=== PATIENT | female | born 1990 | race Caucasian/White ===

== ENCOUNTER 2017-05-29 09:00 | Outpatient (CLI) | payer OTHER, SELFPAY | END 2017-05-29 10:00 | disposition home or self-care (01) | LOC: OBS 09:06 → WP 05-30 08:55 | PROVIDERS: Visit Provider Obstetrics & Gynecology | DX: Z39.1 Encounter for care and examination of lactating mother (principal) | CPT/HCPCS: 96152 ==

== ENCOUNTER → 2018-03-26 14:07 | Outpatient (CLI) | payer OTHER, SELFPAY ==
[2018-03-26 13:17] VITALS: BMI 28.8
[2018-03-26 14:21] LABS: Absolute Lymphocyte Count 1.67 X10^3/ul (0.83-4.51); Basophil# 0.04 X10^3/uL; Basophil% 0.4 % (0-1); Hematocrit 41.4 % (37-47); Hemoglobin 14.3 g/dl (12.0-15.0); Lymphocyte # 1.67 X10^3/ul (4.0); Lymphocyte % 16.2 % (19-41); Mean Corp Hgb Conc 34.5 g/gl (32-36); Mean Corpuscular Volume 92.6 fL (81-99); Mean Platelet Vol. 10.4 fl (6.2-12.0); Monocyte% 4.9 % (0-10); Neutrophil # 7.97 X10^3/uL (2.7-7.7); Neutrophil % 77.3 % (47-70); POSITIVE COUNT NO; POSITIVE DIFFERENTIAL NO; POSITIVE MORPHOLOGY NO; Platelet Count 215 K/mm3 (150-450); RBC Distribution Width CV 11.9 % (11.6-14.6); Red Blood Count 4.47 M/mm3 (4.2-5.4); White Blood Count 10.3 K/mm3 (4.4-11.0)
[2018-03-26 15:38] LABS: HIV - WCH Non-Reactive (Nonreactive); Rubella IgG 29.8 IU/mL
[2018-03-26 19:52] LABS: Chlamydia Trachomatis by PCR Negative (Negative); Neisserai gonorrhoeae by PCR Negative (Negative); Probe Check PASS
[2018-03-28 09:40] LABS: HEPATITIS B SURFACE AG Negative (Negative)
[2018-03-29 00:15] LABS: Rapid Plasmin Reagin (RPR) NONREACTIVE (NONREACTIVE)
[2018-03-31 11:27] LABS: HPV APTIMA, High Risk Negative (Negative)
== END ==
PROVIDERS: Family Provider Family Medicine; PCP Family Medicine; Referring Provider Obstetrics & Gynecology; Visit Provider Obstetrics & Gynecology
DX: Z34.90 Encounter for supervision of normal pregnancy, unspecified, unspecified trimester (principal); Z12.4 Encounter for screening for malignant neoplasm of cervix
CPT/HCPCS: 36415; 85025; 86592; 86703; 86762; 86850; 86900; 87086; 87088; 87340; 87491; 87591; 87624; 88175; G0145

== ENCOUNTER → 2018-04-23 13:32 | Outpatient (CLI) | payer OTHER, SELFPAY ==
[2018-04-23 13:20] VITALS: BMI 28.8
== END ==
PROVIDERS: Referring Provider Nurse Practitioner Women's Health; Visit Provider Nurse Practitioner Women's Health
DX: Z34.81 Encounter for supervision of other normal pregnancy, first trimester (principal)
CPT/HCPCS: 36415

== ENCOUNTER → 2018-08-09 07:58 | Outpatient (CLI) | payer OTHER, SELFPAY ==
[2018-07-16 11:10] VITALS: BMI 28.8
[2018-08-09 09:20] LABS: Glucose Challenge Gest 1H 50g 92 mg/dL (70-140)
== END ==
PROVIDERS: Family Provider Family Medicine; PCP Family Medicine; Referring Provider Obstetrics & Gynecology; Visit Provider Obstetrics & Gynecology
DX: Z34.90 Encounter for supervision of normal pregnancy, unspecified, unspecified trimester (principal)
CPT/HCPCS: 36415; 82950

== ENCOUNTER → 2018-10-09 17:45 | Outpatient (CLI) | payer OTHER, SELFPAY ==
[2018-10-09 09:31] VITALS: BMI 28.8
== END ==
PROVIDERS: Family Provider Family Medicine; Visit Provider Obstetrics & Gynecology
DX: Z34.93 Encounter for supervision of normal pregnancy, unspecified, third trimester (principal)
CPT/HCPCS: 87081

== ENCOUNTER 2018-11-06 10:00 | Inpatient (IN) | payer OTHER, SELFPAY ==
[2018-11-06 09:33] VITALS: BMI 34.0
[2018-11-06 10:12] VITALS: BMI 33.6
[2018-11-06] MEDS: Lactated Ringers 1,000 ML 50 ML IV (10:20)
[2018-11-06 10:44] LABS: Absolute Lymphocyte Count 1.72 X10^3/uL (0.83-4.51); Absolute Neutrophil Count 8.7 X10^3/uL (2.0-7.7); Basophil# 0.04 X10^3/uL; Basophil% 0.4 % (0-1); Eosinophils% 0.9 % (0-5); Hematocrit 40.3 % (37-47); Hemoglobin 13.8 g/dL (12.0-15.0); Lymphocyte # 1.72 X10^3/ul (4.0); Lymphocyte % 15.4 % (19-41); Mean Corp Hgb Conc 34.2 g/dL (32-36); Mean Corpuscular Hgb 32.2 pg (27.0-32.0); Mean Corpuscular Volume 93.9 fL (81-99); Mean Platelet Vol. 11.1 fl (6.2-12.0); Monocyte# 0.61 X10^3/uL; Monocyte% 5.5 % (0-10); NRBC Flagged by Analyzer 0 % (0-5); Neutrophil # 8.67 X10^3/uL (2.7-7.7); Neutrophil % 77.4 % (47-70); Platelet Count 183 K/mm3 (150-450); RBC Distribution Width SD 41.7 fl (35.1-43.9); Red Blood Count 4.29 M/mm3 (4.2-5.4); White Blood Count 11.2 K/mm3 (4.4-11.0)
[2018-11-06] MEDS: Oxytocin 30 units/NS 500 ml 30 UNITS/500 ML IV.SOLN IV (10:54)
[2018-11-06] MEDS: Lactated Ringers 500 ML 999 ML IV ×2 (14:55→19:49)
[2018-11-06] MEDS: fentaNYL-bupivacaine (epidural) 100 ML BAG EPIDURAL ×2 (15:44→20:33)
[2018-11-06] MEDS: Mag Hydrox/Al Hydrox/Simeth 30 ML UDC PO (17:16)
[2018-11-06] MEDS: Lactated Ringers 1,000 ML 200 ML IV (17:17)
[2018-11-06] MEDS: fentaNYL 100 MCG/2 ML Ampul IV (18:35)
[2018-11-06] MEDS: Amnioinfusion- 0.9% NS 1,000 ML IV.SOLN. 500 ML INTRA-UTER (19:05)
[2018-11-06] MEDS: Amnioinfusion- 0.9% NS 1,000 ML IV.SOLN. 75 ML INTRA-UTER (19:35)
[2018-11-06] MEDS: Oxytocin 30 units/NS 500 ml 30 UNITS/500 ML IV.SOLN 334 UNITS IV (21:18)
--- NOTE | 2018-11-06 21:26 | PCM.HP.OB ---
- Problem List (1) Oligohydramnios in [place] in third trimester Status: Acute (2) Encounter for induction of labor Status: Acute (3) Contraception management Status: Acute Qualifiers: Comment: IUD 6 wk pp (4) Unilateral renal agenesis Status: Acute Comment: repeat us with mfm in 4 wk. ped. nephrology is arranged per mfm (5) Status: Acute Qualifiers: Comment: carrier, genetic, and NTD screening discussed. Dennis low risk. Pt declined further genetic testing (6) Supervision of normal Status: Acute Qualifiers: Comment: PRR JACOB 11/01/18 boy Eric Singh Marcos History Date of Admission: 03/30/17 Final JACOB: 11/01/18 Gestational age: 40 Weeks and 5 Days History of this : This is a 28 year-old, at 40 weeks gestational age presents for induction of labor secondary to oligohydramnios. Patient was seen in the office today and was found to have an PAVEL of 5 cm. Patient has had a history of complicated with unilateral renal agenesis but has had normal growth and normal fluid prior to today's appointment. Patient has noted some decreased movement today but overall baby is active.. Surgical History: Surgical History (Last Reviewed 11/06/18 @ 09:33 by Millicent Echeverria) H/O adenoidectomy Z90.89 History of tonsillectomy Z98.890, Z90.89 S/P ACL surgery Z98.890 Allergies Penicillins [PCN] Allergy (Verified 11/06/18 10:20) Hives Home Medications: Home Medications [id number]/Iron/Folic/Dha [ Formula-Dha Softgel] 1 ea PO DAILY 10/04/16 Smoking Status: Never smoker Alcohol: None Number of Fetus(es): 1 NST - FHR Rate Baby A Baseline: 130 Variability:: Moderate Accelerations:: None Decelerations:: None NST Reactive:: Yes FHR Category:: Category I Uterine Activity:: Irregular History Past Pregnancies: Past Pregnancies Previous term vaginal delivery induction of labor postdates prolonged labor Labs: Mom's Labs & Results 11/06/18 11/06/18 10:20 10:20 WBC 11.2 H RBC 4.29 Hgb 13.8 Hct 40.3 MCV 93.9 MCH 32.2 H MCHC 34.2 RDW Std Deviation 41.7 RDW Coeff of Garima 12.0 Plt Count 183 MPV 11.1 Immature Gran % (Auto) 0.400 Neut % (Auto) 77.4 H Lymph % (Auto) 15.4 L [place] % (Auto) 5.5 Eos % (Auto) 0.9 Baso % (Auto) 0.4 Absolute Neuts (auto) 8.7 H Absolute Lymphs (auto) 1.72 Nucleated RBC % 0 Blood Type O POSITIVE Antibody Screen NEGATIVE Course Did the patient receive Yes care? Labs Blood Type: O RH: POSITIVE RPR/VDRL/Syphilis Nonreactive Rubella status Immune HbSAg Negative Date Done: 03/26/18 Chlamydia Negative Gonorrhea Negative HIV/AIDS Non-Reactive Group B Strep: Negative Current Obstetrical History Gestational Diabetes No Incompetent Cervix No Infertility No IUGR No Macrosomia No Hypertension/Pre-eclampsia No Placenta Previa/Abruption No PTL/PROM No Uterine anomaly No Oligohydramnios Yes Polyhydramnios No Multiple gestation No Past Medical History Asthma No Diabetes No Hypertension No Heart disease No Mitral valve prolapse No Neurologic/Seizure disorder/ No Migraines Kidney disease No Liver disease No Varicosities No Clotting disorders/Hx of DVT No Thyroid Dysfunction No Other medical diseases No Psychiatric disorders No Major trauma No Abnormal PAP smear No Sleep apnea No Mammogram in the last 2 years No Social History Marital Status: Alleged father Marcos Parson Hx Smoking No Smoking Status Never smoker Expected Infant Delivery Method: Spontaneous Vaginal Review of Systems Constitutional: Denies: Fever, Malaise Eyes: Denies: Blurred vision, Vision Change HEENT: Denies: Head Aches, Visual Changes Cardiovascular: Denies: Chest Pain, Palpitations Respiratory: Denies: Cough, Shortness of Breath, Wheezing Gastrointestinal: Denies: Abdominal Pain, Diarrhea, Nausea, Vomiting Genitourinary: Denies: Dysuria, Hematuria Musculoskeletal: Denies: Joint Pain, Muscle pain Skin: Denies: Lesions, Rash Neurological: Denies: Blurred vision, Focal weakness, Headaches Psychiatric: Denies: Anxiety, Depression Endocrine: Denies: Heat/ Cold Intolerance Hematologic/ Lymphatic: Denies: Easy Bruising, Easy Bleeding Physical Exam General: Alert, Cooperative, No apparent distress HEENT: Atraumatic, Normocephalic. Negative for: Thyromegaly, Lymphadenopathy Cardiovascular: Regular rate Lungs: Normal air movement Abdomen: Soft, Non Tender, Gravid Neurological: Deep Tendon Reflexes 2+/4 and Symmetrical, Neuro grossly intact. 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 Negative for: Vulvar lesions Estimated gestational size: Appropriate for gestational size Presentation: Cephalic Cervix Dilation (cm): 3 Station: -2 Effacement (%): 50 Assessment/Plan All Active Problems (Last Reviewed 11/06/18 @ 09:33 by Millicent Echeverria) Oligohydramnios in [place] in third trimester (Acute) Encounter for induction of labor (Acute) Contraception management (Acute) Unilateral renal agenesis (Acute) (Acute) Supervision of normal (Acute) GBS (group B Streptococcus carrier), +RV culture, currently (Resolved) Dennis low risk (Resolved) Normal delivery at term (Resolved) Oligohydramnios in [place] in third trimester (Resolved) Supervision of normal (Resolved) This is a 28 year-old, G 2P1 at 40 weeks gestational age presents for induction labor secondary to oligohydramnios. Patient presents IOL, plan management for , pitocin/AROM when able. Pain management: [plans epidural]. GBS [negative]. Management of any complications: Oligohydramnios new onset suspected placental insufficiency, unilateral renal agenesis I have reviewed the COUNTS INCLUDE 234 BEDS AT THE [facility] and made any clinically relevant updates.
--- NOTE | 2018-11-06 21:31 | PCM.OPRPT ---
Problem List (1) Oligohydramnios in [place] in third trimester Status: Acute (2) Encounter for induction of labor Status: Acute (3) Contraception management Status: Acute Qualifiers: Comment: IUD 6 wk pp (4) Unilateral renal agenesis Status: Acute Comment: repeat us with mfm in 4 wk. ped. nephrology is arranged per mfm (5) Status: Acute Qualifiers: Comment: carrier, genetic, and NTD screening discussed. Dennis low risk. Pt declined further genetic testing (6) Supervision of normal Status: Acute Qualifiers: Comment: PRR JACOB 11/01/18 boy Eric Singh Marcos Vaginal Delivery 28-year-old G2, P1 at 40 weeks 5 days presents for induction of labor secondary to oligohydramnios. Patient has a history of unilateral renal agenesis. Method of Induction: Pitocin Medical Reason for Induction: - - Oligohydramnios Amniotic Membrane Rupture Type: Artificial Amniotic Fluid Description: Clear Final JACOB: 11/01/18 Gestational age: 40 Weeks and 5 Days Date of Procedure: 11/06/18 Pre-Operative Diagnosis: Induction of labor oligo Post-Operative Diagnosis: same Surgery/ Procedure Performed: Spontaneous Vaginal Delivery Type of Anesthesia: Epidural Description of Procedure: Patient began pushing and delivered the head in the JAMARI presentation. The head was delivered atraumatically and a loose nuchal cord ?1 was identified and easily reduced over the 's head. The anterior and posterior shoulders delivered without complication followed by the rest of the infant and the infant was placed on the maternal abdomen. Delayed cord clamping was employed for approximately 60 seconds. Cord was clamped and cut and gentle traction was applied to the cord and the placenta delivered spontaneously immediately following it was noted to be intact with three-vessel cord. The perineum and vagina were inspected and noted to have no laceration. EBL was 300 cc. Patient and infant tolerated delivery well. Presentation: JAMARI Placental Delivery Description: Spontaneous Placenta Disposition: [facility] Cord Vessel Description: 3 Vessels Nuchal Cord Compression: With compression Cord Gases drawn per routine: ABG, VBG Cord Entanglement: Around neck x 1, loose Estimated Blood Loss: 300 Infant A gender: Male Episiotomy Description: None Laceration: None Medications given after delivery: IV Pitocin Complications: None
[2018-11-06] MEDS: 0.9% Saline Lock 10 ML Syringe IV (21:36)
[2018-11-06] MEDS: Ondansetron 4 MG/2 ML Vial IV (21:37)
[2018-11-07] MEDS: 0.9% Saline Lock 10 ML Syringe IV (00:29)
[2018-11-07] MEDS: Naproxen 250 MG Tablet 500 MG PO (02:36)
[2018-11-07 04:15] VITALS: BP 103/58; PULSE 71; RESP 16; TEMP 36.9
[2018-11-07 08:50] VITALS: BP 101/57; PULSE 75; RESP 16; TEMP 36.7; O2SAT 98
[2018-11-07 13:36] VITALS: BP 109/63; PULSE 69; RESP 16; TEMP 36.8
[2018-11-07 16:00] VITALS: BP 107/59; PULSE 69; RESP 16; TEMP 36.6; O2SAT 98
--- NOTE | 2018-11-07 17:13 | PCM.PN.OB ---
Patient Problems: Active and Suspected Problems (Last Reviewed 11/06/18 @ 09:33 by Millicent Echeverria) Oligohydramnios in [place] in third trimester (Acute) Encounter for induction of labor (Acute) Subjective: doing well no complaints pain controlled no CP SOB N V ambulating well tolerating po lochia moderate, going well - Physical Exam General: Alert, Oriented x3 Vital Signs Temp Pulse Resp BP Pulse Ox 98 F 69 16 107/59 L 98 11/07/18 16:00 11/07/18 16:00 11/07/18 16:00 11/07/18 16:00 11/07/18 16:00 Oxygen Delivery Method Room Air Weight: 228 lb Body Mass Index (BMI) 33.6 Intake and Output for Last 24 Hours 11/05/18 11/06/18 11/07/18 23:59 23:59 23:59 Intake Total 2892.09 / 2892.09 Output Total 1900 / 1900 3500 / 3500 Balance 992.09 / 992.09 -3500 / -3500 Medical Necessity - Tobacco Use Smoking Status: Never smoker Assessment/Plan All Active Problems (Last Reviewed 11/06/18 @ 09:33 by Millicent Echeverria) Oligohydramnios in [place] in third trimester (Acute) Encounter for induction of labor (Acute) Contraception management (Acute) Unilateral renal agenesis (Acute) (Acute) Supervision of normal (Acute) GBS (group B Streptococcus carrier), +RV culture, currently (Resolved) Dennis low risk (Resolved) Normal delivery at term (Resolved) Oligohydramnios in [place] in third trimester (Resolved) Supervision of normal (Resolved) s/p PPD # 1 1. routine post delivery care 2. breast feeding- support given 3. rh positive 4. rubella immune
[2018-11-07 20:55] VITALS: BP 102/62; PULSE 67; RESP 18; TEMP 36.7
[2018-11-07] MEDS: Senna/Docusate Sodium 1 Tablet PO (21:00)
== END 2018-11-07 23:10 | disposition home or self-care (01) | DRG 806 ==
PROVIDERS: Admitting Provider Obstetrics & Gynecology; Family Provider Family Medicine; Referring Provider Obstetrics & Gynecology; Visit Provider Obstetrics & Gynecology
DX: O41.03X0 Oligohydramnios, third trimester, not applicable or unspecified (principal); Q60.0 Renal agenesis, unilateral; Z37.0 Single live birth; O99.89 Other specified diseases and conditions complicating pregnancy, childbirth and the puerperium; N28.89 Other specified disorders of kidney and ureter; O69.1XX0 Labor and delivery complicated by cord around neck, with compression, not applicable or unspecified; O48.0 Post-term pregnancy; Z3A.40 40 weeks gestation of pregnancy
CPT/HCPCS: 59025; 59050; 85025; 86850; 86900; 86901; 99218; J7030; J7120; A4216; G0378; J2405

== ENCOUNTER → 2018-12-16 13:33 | Outpatient (CLI) | payer OTHER, SELFPAY ==
[2018-12-16 08:43] VITALS: BMI 33.6
== END ==
PROVIDERS: Family Provider Family Medicine; PCP Family Medicine; Referring Provider Obstetrics & Gynecology; Visit Provider Obstetrics & Gynecology
DX: R33.0 Drug induced retention of urine (principal)
CPT/HCPCS: 87086; 87088

== ENCOUNTER → 2019-04-25 08:55 | Outpatient (CLI) | payer OTHER, SELFPAY ==
[2018-12-16 08:43] VITALS: BMI 33.6
--- NOTE | 2019-04-25 08:59 | RAD_ITS ---
STUDY: X-RAY - LUMBAR SPINE REASON FOR EXAM: Female, 29 years old. back pain into the right hip TECHNIQUE: 5 view(s) of the lumbar spine were obtained. COMPARISON: None FINDINGS: Normal lumbar lordosis. There is no substantial scoliosis. There is a normal alignment of the vertebrae. Normal vertebral bodies and endplates. Normal disc space heights. An IUD is seen in the pelvis. RAD/L/S Spine Min 4 Views IMPRESSION: Normal x-ray examination of the lumbar spine. Electronically Signed: Pipe Urban MD at 18:35 EST , Service support ,
--- NOTE | 2019-04-25 09:00 | RAD_ITS ---
STUDY: X-RAY - SACROILIAC JOINTS REASON FOR EXAM: Female, 29 years old. back pain into the right hip TECHNIQUE: 3 view(s) of the sacroiliac joints were obtained. COMPARISON: None. FINDINGS: Normal bilateral sacroiliac joints. Normal visualized sacral ala and sacrum. Normal visualized iliac bones. An IUD is seen in the mid pelvis. RAD/S-I Jts 3 or More Views IMPRESSION: Normal x-ray examination of the bilateral sacroiliac joints. Electronically Signed: Pipe Urban MD at 19:11 EST , Service support ,
== END ==
PROVIDERS: PCP Family Medicine; Referring Provider Family Medicine; Visit Provider Family Medicine
DX: M53.3 Sacrococcygeal disorders, not elsewhere classified (principal)
CPT/HCPCS: 72110; 72202

== ENCOUNTER → 2019-11-05 14:54 | Outpatient (CLI) | payer OTHER, SELFPAY ==
[2019-11-05 14:19] VITALS: BMI 33.6
[2019-11-05 15:23] LABS: Absolute Lymphocyte Count 2.13 X10^3/uL (0.83-4.51); Absolute Neutrophil Count 4.1 X10^3/uL (2.0-7.7); Basophil# 0.05 X10^3/uL; Basophil% 0.7 % (0-1); Eosinophil# 0.12 X10^3/uL; Eosinophils% 1.8 % (0-5); Hematocrit 39.2 % (37-47); Lymphocyte # 2.13 X10^3/ul (4.0); Lymphocyte % 31.4 % (19-41); Mean Corp Hgb Conc 33.2 g/dL (32-36); Mean Corpuscular Hgb 31.7 pg (27.0-32.0); Mean Corpuscular Volume 95.6 fL (81-99); Mean Platelet Vol. 10.1 fl (6.2-12.0); Monocyte# 0.37 X10^3/uL; Monocyte% 5.5 % (0-10); NRBC Flagged by Analyzer 0 % (0-5); Neutrophil % 60.5 % (47-70); Platelet Count 231 K/mm3 (150-450); RBC Distribution Width CV 11.5 % (11.6-14.6); RBC Distribution Width SD 39.8 fl (35.1-43.9); White Blood Count 6.8 K/mm3 (4.4-11.0)
== END ==
PROVIDERS: PCP Family Medicine; Referring Provider Obstetrics & Gynecology; Visit Provider Obstetrics & Gynecology
DX: N93.9 Abnormal uterine and vaginal bleeding, unspecified (principal)
CPT/HCPCS: 36415; 85025

== ENCOUNTER → 2020-03-17 | Outpatient (CLI) | payer OTHER, SELFPAY ==
[2020-03-17 09:13] VITALS: BMI 29.7
[2020-03-17 17:52] LABS: Amphetamine Urine VISTA NEGATIVE (<1000 ng/mL); Barbiturate Urine VISTA NEGATIVE (< 200 ng/mL); Benzodiazepine Urine VISTA NEGATIVE (< 200 ng/mL); Cocaine Urine VISTA NEGATIVE (< 300 ng/mL); Ecstacy Urine VISTA NEGATIVE (< 500 ng/mL); Methadone Urine VISTA NEGATIVE (< 300 ng/mL); PCP Urine VISTA NEGATIVE (< 25 ng/mL); THC Urine VISTA NEGATIVE (< 50 ng/mL); Vista UDS pH Range 6
== END | disposition home or self-care (01) ==
LOC: LABSPEC 16:42
PROVIDERS: PCP Family Medicine; Referring Provider Obstetrics & Gynecology; Visit Provider Obstetrics & Gynecology
DX: Z34.80 Encounter for supervision of other normal pregnancy, unspecified trimester (principal)
CPT/HCPCS: 80307; 87086; 87088

== ENCOUNTER → 2020-04-02 09:06 | Outpatient (CLI) | payer OTHER, SELFPAY ==
[2020-03-17 09:13] VITALS: BMI 29.7
[2020-04-02 10:12] LABS: NATERA MAILED SPECIMEN
[2020-04-02 10:19] LABS: Absolute Lymphocyte Count 1.48 X10^3/uL (0.83-4.51); Absolute Neutrophil Count 7.1 X10^3/uL (2.0-7.7); Basophil# 0.05 X10^3/uL; Basophil% 0.6 % (0-1); Eosinophil# 0.09 X10^3/uL; Hemoglobin 14.1 g/dL (12.0-15.0); Lymphocyte # 1.48 X10^3/ul (4.0); Lymphocyte % 16.3 % (19-41); Mean Corp Hgb Conc 33.6 g/dL (32-36); Mean Corpuscular Hgb 31.2 pg (27.0-32.0); Mean Corpuscular Volume 92.9 fL (81-99); Mean Platelet Vol. 10.6 fl (6.2-12.0); Monocyte# 0.34 X10^3/uL; Monocyte% 3.7 % (0-10); NRBC Flagged by Analyzer 0 % (0-5); Neutrophil # 7.07 X10^3/uL (2.7-7.7); Platelet Count 215 K/mm3 (150-450); RBC Distribution Width CV 11.7 % (11.6-14.6); RBC Distribution Width SD 40.1 fl (35.1-43.9); Red Blood Count 4.52 M/mm3 (4.2-5.4); White Blood Count 9.1 K/mm3 (4.4-11.0)
[2020-04-02 11:45] LABS: HIV - WCH Non-Reactive (Nonreactive); Hepatitis B Surface Antigen Non-Reactive (Nonreactive); Hepatitis C Antibody Non-Reactive (Nonreactive); Rubella IgG Reactive (Nonreactive)
[2020-04-08 01:40] LABS: Rapid Plasmin Reagin (RPR) NONREACTIVE (NONREACTIVE)
== END ==
PROVIDERS: PCP Family Medicine; Referring Provider Obstetrics & Gynecology; Visit Provider Obstetrics & Gynecology
DX: Z34.81 Encounter for supervision of other normal pregnancy, first trimester (principal)
CPT/HCPCS: 36415; 85025; 86592; 86703; 86762; 86803; 86850; 86900; 86901; 87340

== ENCOUNTER → 2020-07-20 07:38 | Outpatient (CLI) | payer OTHER, SELFPAY ==
[2020-07-06 09:10] VITALS: BMI 31.4
[2020-07-20 08:36] LABS: Absolute Lymphocyte Count 1.08 X10^3/uL (0.83-4.51); Absolute Neutrophil Count 7.8 X10^3/uL (2.0-7.7); Basophil# 0.05 X10^3/uL; Basophil% 0.5 % (0-1); Eosinophil# 0.12 X10^3/uL; Eosinophils% 1.3 % (0-5); Hematocrit 39.5 % (37-47); Hemoglobin 13.3 g/dL (12.0-15.0); Lymphocyte # 1.08 X10^3/ul (0.83-4.51); Lymphocyte % 11.4 % (19-41); Mean Corp Hgb Conc 33.7 g/dL (32-36); Mean Corpuscular Hgb 32.5 pg (27.0-32.0); Mean Corpuscular Volume 96.6 fL (81-99); Mean Platelet Vol. 10.3 fl (6.2-12.0); Monocyte# 0.38 X10^3/uL; NRBC Flagged by Analyzer 0 % (0-5); Neutrophil # 7.78 X10^3/uL (2.7-7.7); Neutrophil % 82.1 % (47-70); Platelet Count 213 K/mm3 (150-450); RBC Distribution Width CV 11.5 % (11.6-14.6); RBC Distribution Width SD 40.8 fl (35.1-43.9); Red Blood Count 4.09 M/mm3 (4.2-5.4); White Blood Count 9.5 K/mm3 (4.4-11.0)
[2020-07-20 08:55] LABS: Glucose Challenge Gest 1H 50g 73 mg/dL (70-140)
== END ==
PROVIDERS: PCP Family Medicine; Referring Provider Obstetrics & Gynecology; Visit Provider Obstetrics & Gynecology
DX: Z34.92 Encounter for supervision of normal pregnancy, unspecified, second trimester (principal); Z13.1 Encounter for screening for diabetes mellitus
CPT/HCPCS: 36415; 82950; 85025

== ENCOUNTER → 2020-09-22 | Outpatient (CLI) | payer OTHER, SELFPAY ==
[2020-09-22 08:33] VITALS: BMI 31.4
== END | disposition home or self-care (01) ==
PROVIDERS: PCP Family Medicine; Visit Provider Obstetrics & Gynecology
DX: Z36.85 Encounter for antenatal screening for Streptococcus B (principal)
CPT/HCPCS: 87081

== ENCOUNTER → 2020-10-07 16:19 | Outpatient (CLI) | payer OTHER, SELFPAY ==
[2020-10-07 15:46] VITALS: BMI 31.4
--- NOTE | 2020-10-07 16:21 | US_ITS ---
STUDY: SECOND AND THIRD TRIMESTER OBSTETRICAL ULTRASOUND - LIMITED REASON FOR EXAM: Female, 30 years old history oligo LMP: 01/11/2020 PRIOR ULTRASOUND: None. TECHNIQUE: Transabdominal TECHNICAL QUALITY: Adequate. FINDINGS: There is a single intrauterine fetus. The fetus is in a cephalic presentation. There is demonstrated cardiac activity with a heart rate of 153 bpm. There is a normal amniotic fluid volume. The largest amniotic fluid pocket measures 4.4 cm. The amniotic fluid index (PAEVL) is 7.0 cm. The placenta is fundal in location. There are Grade 2 placental changes. The cervix measures 5.4 cm in length. BIOMETRY: BPD: 9.3 cm: 37 weeks, 6 days HC: 33.8 cm: 38 weeks, 5 days AC: 33.3 cm: 37 weeks, 1 days FL: 7.0 cm: 35 weeks, 6 days Age by LMP: 38 weeks, 4 days. JACOB by LMP: 10/17/2020. age by current US: 37 weeks, 2 days. JACOB by current US: 10/26/2020. Estimated weight: 3135 grams, +/- 470 grams, 31 percentile. Gender: US/OB Limited With Biometrics IMPRESSION: Living intrauterine of 37 weeks 2 days as described above. Amniotic fluid A 7.0 cm. Electronically Signed: Jose Luis Price MD at 8:23 EDT Tel , Service support ,
== END ==
PROVIDERS: PCP Family Medicine; Referring Provider Obstetrics & Gynecology; Visit Provider Obstetrics & Gynecology
DX: O09.293 Supervision of pregnancy with other poor reproductive or obstetric history, third trimester (principal); Z3A.37 37 weeks gestation of pregnancy
CPT/HCPCS: 76816

== ENCOUNTER 2020-10-14 08:33 | Inpatient (IN) | payer OTHER, SELFPAY ==
[2020-10-14] VITALS (44 sets, daily range): BP systolic 94–138; BP diastolic 50–74; PULSE 58–86; TEMP 35.8–37.1; O2SAT 97–100; BMI 31.4; BMI 34.0
[2020-10-14] MEDS: Lactated Ringers 1,000 ML 50 ML IV (08:50)
[2020-10-14 09:05] LABS: Absolute Lymphocyte Count 1.36 X10^3/uL (0.83-4.51); Absolute Neutrophil Count 6.1 X10^3/uL (2.0-7.7); Basophil# 0.03 X10^3/uL; Basophil% 0.4 % (0-1); Eosinophil# 0.08 X10^3/uL; Hematocrit 39.9 % (37-47); Hemoglobin 13.5 g/dL (12.0-15.0); Lymphocyte # 1.36 X10^3/ul (0.83-4.51); Lymphocyte % 17.2 % (19-41); Mean Corp Hgb Conc 33.8 g/dL (32-36); Mean Corpuscular Hgb 31.9 pg (27.0-32.0); Mean Corpuscular Volume 94.3 fL (81-99); Mean Platelet Vol. 10.8 fl (6.2-12.0); Monocyte# 0.34 X10^3/uL; Monocyte% 4.3 % (0-10); NRBC Flagged by Analyzer 0 % (0-5); Neutrophil # 6.09 X10^3/uL (2.7-7.7); Neutrophil % 76.8 % (47-70); Platelet Count 173 K/mm3 (150-450); RBC Distribution Width CV 11.9 % (11.6-14.6); RBC Distribution Width SD 41.4 fl (35.1-43.9); Red Blood Count 4.23 M/mm3 (4.2-5.4); White Blood Count 7.9 K/mm3 (4.4-11.0)
[2020-10-14] MEDS: Oxytocin 30 units/NS 500 ml 30 UNITS/500 ML IV.SOLN IV (09:20)
[2020-10-14] MEDS: 0.9% Normal Saline Single 100 ML IV.SOLN. INTRA-UTER (16:00)
[2020-10-14] MEDS: Lactated Ringers 500 ML 999 ML IV ×2 (16:42→18:20)
[2020-10-14] MEDS: fentaNYL-bupivacaine (epidural) 100 ML BAG EPIDURAL ×2 (17:40→21:13)
--- NOTE | 2020-10-14 19:12 | HP.PCM.OB_ITS ---
HPI - General General Date of Admission: 10/14/20 HPI Narrative SHA CLEARY, is a 30 F who presents for induction of labor secondary to oligohydramnios. Patient had a borderline PAVEL last week and had a repeat in the office today that was less than 5 cm. Maternal Data Information JACOB Calculator Estimated Delivery Date Method Current WG Current Estimate 10/17/20 LMP (Certain) 39w 4d PFSH PFSH Home Medications [id number] 1 ea PO DAILY 10/04/16 [History Last Taken 11/05/18] Allergy/AdvReac Type Severity Reaction Status Date / Time Penicillins [PCN] Allergy Hives Verified 10/14/20 08:04 Family History Father Anxiety Grandfather Parkinsons disease Surgical History H/O adenoidectomy History of tonsillectomy S/P ACL surgery Social History Smoking Status: Never smoker alcohol intake: never substance use type: does not use caffeine: Yes what type of physical activity do you participate in: none seatbelt use: always additional social history: [facility] History 3 Elective abortions Hx Para 2 Spontaneous abortions Hx # Term Pregnancies Ectopic pregnancies Hx # Pregnancies Multiple births # of living children 2 Past Pregnancies Del. Date Name GA/Weeks Outcome Route Bth Weight Infant Gen Labor Lgth Anesthesia Del Locat Provider FOB 03/25/17 Francisco 41 live - full term 8 pounds 13 oz Male 1 day epidural [facility] Marcos 11/06/18 Eric 40 live - full term 8lbs 5oz Male 9 hours e pidural [facility] Delivery Date: 03/25/17 oligo Zully Rhodes Delivery Date: 11/06/18 Oligo-unilateral renal agenesis Sha Barrett Visit Details Expected Delivery Route/Plan Labor Preferences- CB/BF classes: no labor support person: Marcos labor intervention preferences: open to standard interventions pain management options preferred: epidural cut cord/dad catch: mom catch and cord : yes PP control planned: IUD at 6w PP visit discussed possible routes of delivery and associated risks: [] special requests: [] Plans flu vaccine: given tdap vaccine: given rhogam: na LARC form signed: yes Problem list reviewed and updated with the most current plan of care details and appropriate orders placed. Relevant counseling for the gestational age provided. Continue routine care and follow up unless otherwise noted in visit notes/problem list details OB Flowsheet Initial Weight: Not Recorded Date -?-?-?-?-?-?-?-?-?-?-?-?- EGA Weight BP Urine Prot -?-?-?-?-?-?-?-?-?-?-?-?- Glucose FHR FuHt Pres Dilation -?-?-?-?-?-?-?-?-?-?-?-?- Effaced St Visit Note 03/17/20 -?-?-?-?-?-?-?-?-?-?-?-?- 9w 3d 201 lb 8 oz 110/80 -?-?-?-?-?-?-?-?-?-?-?-?- 175 -?-?-?-?-?-?-?-?-?-?-?-?- GP - CRL 23mm co nsistent with LMP. 04/14/20 -?-?-?-?-?-?-?-?-?-?-?-?- 13w 3d 204 lb 2 oz 110/68 Nega tive -?-?-?-?-?-?-?-?-?-?-?-?- Negative 155 -?-?-?-?-?-?-?-?-?-?-?-?- GP - no cramping or bleeding. Anatomy scan ordered. Getting second COVID vaccine tomorrow. 05/14/20 -?-?-?-?-?-?-?-?-?-?-?-?- 17w 5d 207 lb 124/71 Negative -?-?-?-?-?-?-?-?-?-?-?-?- Negative 150 -?-?-?-?-?-?-?-?-?-?-?-?- SM- n ovb lof cr amping. 06/07/20 -?-?-?-?-?-?-?-?-?-?-?-?- 21w 1d 213 lb 4 oz 100/70 Nega tive -?-?-?-?-?-?-?-?-?-?-?-?- Negative 140 -?-?-?-?-?-?-?-?-?-?-?-?- GP - no cramping , LOF, VB, DFM. Anatomy nl. 07/06/20 -?-?-?-?-?-?-?-?-?-?-?-?- 25w 2d 217 lb 120/66 -?-?-?-?-?-?-?-?-?-?-?-?- 155 -?-?-?-?-?-?-?-?-?-?-?-?- MH-NO Vb, LOF. G ood FM. 07/20/20 -?-?-?-?-?-?-?-?-?-?-?-?- 27w 2d 221 lb 110/62 Negative -?-?-?-?-?-?-?-?-?-?-?-?- Negative 145 27 -?-?-?-?-?-?-?-?-?-?-?-?- SM- no vb lof go od fm no regular ctx 08/03/20 -?--?-?-?-?-?-?-?-?-?-?-?- 29w 2d 221 lb 6 oz 118/66 Nega tive -?-?-?-?-?-?-?-?-?-?-?-?- Negative 136 29 -?-?-?-?-?-?-?-?-?-?-?-?- No VB, LOF. Good FM. Nl 28 wk labs 08/19/20 -?-?-?-?-?-?-?-?-?-?-?-?- 31w 4d 224 lb 6 oz 106/66 Nega tive -?-?-?-?-?-?-?-?-?-?-?-?- Negative 135 31 -?-?-?-?-?-?-?-?-?-?-?-?- GP - no LOF, VB, DFM, ctx. Going to a friend's wedding this . 09/03/20 -?-?-?-?-?-?-?-?-?-?-?-?- 33w 5d 228 lb 127/70 Negative -?-?-?-?-?-?-?-?-?-?-?-?- Negative 150 34 Cephalic -?-?-?-?-?-?-?-?-?-?-?-?- SM- no vb lof go od fm no regular ctx 09/16/20 -?-?-?-?-?-?-?-?-?-?-?-?- 35w 4d 231 lb 2 oz 110/70 Nega tive -?-?-?-?-?-?-?-?-?-?-?-?- Negative 145 35 Cephalic -?-?-?-?-?-?-?-?-?-?-?-?- GP - no LOF, VB, dFM, ctx. Discussed labor preferences. 09/22/20 -?-?-?-?-?-?-?-?-?-?-?-?- 36w 3d 228 lb 102/60 Negative -?-?-?-?-?-?-?-?-?-?-?-?- Negative 140 36 Cephalic 1 -?-?-?-?-?-?-?-?-?-?-?-?- 50 -3 GP - no LO F, VB, DFM, ctx. GBS today. Visiting cousins in [place] this . 09/29/20 -?-?-?-?-?-?-?-?-?-?-?-?- 37w 3d 229 lb 114/62 Negative -?-?-?-?-?-?-?-?-?-?-?-?- Negative 155 37 Cephalic 1 -?-?-?-?-?-?-?-?-?-?-?-?- 50 -3 GP - no LO F, VB, dFM, ctx. Denies complaints. 10/07/20 -?-?-?-?-?-?-?-?-?-?-?-?- 38w 4d 232 lb 132/80 Negative -?-?-?-?-?-?-?-?-?-?-?-?- Negative 150 38 Cephalic 1 -?-?-?-?-?--?-?-?-?-?-?-?- SM- no vb lof go od fm irregular ctx. SM- no vb lof good fm irregu lar ctx. growth us ordered due to history of oligo 10/14/20 -?-?-?-?-?-?-?-?-?-?-?-?- 39w 4d 231 lb 120/76 Negative -?-?-?-?-?-?-?-?-?-?-?-?- Negative -?-?-?-?-?-?-?-?-?-?-?-?- 10/14/20 -?-?-?-?-?-?-?-?-?-?-?-?- 39w 4d 230 lb 6.129 oz 118/ 69 114/67 115/74 138/72 126/71 107/61 133/60 120/67 125/67 105/55 102/51 99/54 94/55 95/50 99/58 96/55 103/56 105/55 114/69 -?-?-?-?-?-?-?-?--?-?-?-?- -?-?-?-?-?-?-?-?-?-?-?-?- NST FHR Rate Baby A Baseline: 130 Variability:: Moderate Accelerations:: 15 x 15 Decelerations:: None NST Reactive:: Yes FHR Category:: Category I Uterine Activity:: irregular ROS Constitutional Constitutional: Reports systems reviewed and no addt'l complaints, except as documented Eyes Eyes: Denies change in vision ENT HEENT: Reports systems reviewed and no addt'l complaints, except as documented; Denies headache(s) Cardiovascular Cardiovascular: Reports systems reviewed and no addt'l complaints, except as documented; Denies chest pain or dyspnea Respiratory/Chest Respiratory/Chest: Reports systems reviewed and no addt'l complaints, except as documented Gastrointestinal Gastrointestinal: Reports systems reviewed and no addt'l complaints, except as documented; Denies abdominal pain Genitourinary Genitourinary: Reports systems reviewed and no addt'l complaints, except as documented, contractions Details: present (irregular) and movement Details: present; Denies dysuria or genital lesions Musculoskeletal Musculoskeletal: Reports systems reviewed and no addt'l complaints, except as documented Neurologic Neurologic: Reports systems reviewed and no addt'l complaints, except as documented Endocrine Endocrinology: Reports systems reviewed and no addt'l complaints, except as documented Vital Signs Vital Signs Vital Signs: 10/14/20 09:14 10/14/20 13:59 10/14/20 14:08 Temperature 98.8 F 98.1 F Temperature Source Pulse Rate 83 73 77 Blood Pressure 118/69 114/67 BP Systolic 118 114 BP Diastolic 69 67 Pulse Ox 97 10/14/20 15:28 10/14/20 15:29 10/14/20 17:19 Temperature 98.1 F Temperature Source Temporal Pulse Rate 61 68 Blood Pressure 115/74 138/72 H BP Systolic 115 138 BP Diastolic 74 72 Pulse Ox 98 10/14/20 17:22 10/14/20 17:27 10/14/20 17:31 Temperature 98.1 F Temperature Source Pulse Rate 61 69 Blood Pressure 126/71 H BP Systolic 126 BP Diastolic 71 Pulse Ox 99 99 10/14/20 17:32 10/14/20 17:37 10/14/20 17:42 Temperature Temperature Source Pulse Rate 71 72 Blood Pressure 107/61 133/60 H BP Systolic 107 133 BP Diastolic 61 60 Pulse Ox 98 98 98 10/14/20 17:43 10/14/20 17:47 10/14/20 17:52 Temperature Temperature Source Pulse Rate 71 65 64 Blood Pressure 120/67 125/67 H 105/55 L BP Systolic 120 125 105 BP Diastolic 67 67 55 Pulse Ox 99 98 99 10/14/20 17:57 10/14/20 17:58 10/14/20 18:02 Temperature Temperature Source Pulse Rate 62 Blood Pressure 102/51 L BP Systolic 102 BP Diastolic 51 Pulse Ox 99 98 10/14/20 18:03 10/14/20 18:06 10/14/20 18:07 Temperature 97.7 F L Temperature Source Pulse Rate 61 62 Blood Pressure 99/54 L 94/55 L BP Systolic 99 94 BP Diastolic 54 55 Pulse Ox 99 10/14/20 18:12 10/14/20 18:17 10/14/20 18:22 Temperature Temperature Source Pulse Rate 66 64 64 Blood Pressure 95/50 L 99/58 L 96/55 L BP Systolic 95 99 96 BP Diastolic 50 58 55 Pulse Ox 99 99 99 10/14/20 18:27 10/14/20 18:32 10/14/20 18:33 Temperature Temperature Source Pulse Rate 62 59 L 61 Blood Pressure 103/56 L 105/55 L BP Systolic 103 105 BP Diastolic 56 55 Pulse Ox 99 99 10/14/20 18:37 10/14/20 18:42 10/14/20 18:44 Temperature 97.3 F L Temperature Source Pulse Rate 58 L 67 Blood Pressure BP Systolic BP Diastolic Pulse Ox 100 99 10/14/20 18:47 10/14/20 18:52 10/14/20 18:57 Temperature Temperature Source Pulse Rate 68 64 69 Blood Pressure BP Systolic BP Diastolic Pulse Ox 99 100 99 10/14/20 19:02 10/14/20 19:05 10/14/20 19:07 Temperature Temperature Source Pulse Rate 74 72 69 Blood Pressure 114/69 BP Systolic 114 BP Diastolic 69 Pulse Ox 99 100 Weight Weight: 230 lb 6.129 oz Body Mass Index (BMI) 34.0 Physical Exam Const alert, oriented x3, no apparent distress and healthy appearing HEENT normocephalic and moist oral mucous membranes Head and Scalp: atraumatic Neck full ROM, no lymphadenopathy, supple and thyroid normal General: trachea midline Lymph Lymphatic: no lymphadenopathy noted Chest inspection of chest normal Resp normal respiratory effort Cardio regular rate GI normal to inspection, nondistended, normoactive bowel sounds, soft to palpation and non-tender Inspection: gravid external exam normal Manual OB Exam: estimated gestational size appropriate, presentation cephalic, dilated, effaced and station Extremity normal to inspection General Extremity: Negative for edema Skin no rashes or lesions noted Neuro no focal motor deficits and deep tendon reflexes 2+ bilaterally Motor Exam: strength 5/5 throughout and clonus absent Psych mental status grossly normal Labs Labs Labs: Blood Type O POSITIVE Antibody Screen NEGATIVE Hct 39.9 % (37-47) Hgb 13.5 g/dL (12.0-15.0) Obstetrics US Rubella IgG Antibody Reactive (Nonreactive) Hep Bs Antigen Non-Reactive (Nonreactive) HIV 1&2 Antibody Non-Reactive (Nonreactive) C.trachomatis DNA (PCR) Negative (Negative) Glucose 1 Hr 50 gm 73 mg/dL (70-140) Group B Strep DNA POSITIVE (Negative) H Rhogam given: No Miscellaneous Test Assessment & Plan (1) Oligohydramnios: COMMENT: Less than 5 cm in office 10/14 plan induction of labor (2) Family history of congenital anomaly: COMMENT: son eric has unilateral renal agenesis (3) : QUALIFIERS: Weeks of gestation: 39 weeks Qualified Code(s): Z3A.39 - 39 weeks gestation of COMMENT: NIPT- low risk. decline carrier and afp. NL anatomy GBS NEGATIVE (4) Supervision of other normal : COMMENT: PRR JACOB 10/17/20 surprise PC: Eric Singh Spouse: Marcos (5) H/O oligohydramnios in prior , currently : COMMENT: growth us PLAN: Patient presents IOL, plan management for with Pitocin and Ramírez bulb. Pain management: Plans epidural. GBS negative. Management of any complications: None I have reviewed the [facility] and made any clinically relevant updates.
[2020-10-14] MEDS: Lactated Ringers 1,000 ML 200 ML IV (21:13)
[2020-10-14] MEDS: 0.9% Saline Lock 10 ML Syringe IV (21:39)
[2020-10-14] MEDS: Ondansetron 4 MG/2 ML Vial IV (21:39)
[2020-10-15] VITALS (22 sets, daily range): BP systolic 93–129; BP diastolic 46–76; PULSE 57–77; RESP 16–18; TEMP 36.1–37.4; O2SAT 97–98
[2020-10-15] MEDS: fentaNYL-bupivacaine (epidural) 100 ML BAG EPIDURAL (02:02)
[2020-10-15] MEDS: Lactated Ringers 1,000 ML 200 ML IV (02:02)
[2020-10-15] MEDS: Oxytocin 30 units/NS 500 ml 30 UNITS/500 ML IV.SOLN 334 UNITS IV (05:36)
--- NOTE | 2020-10-15 05:52 | EX.PCM.OBRPT ---
Assessment & Plan (1) : QUALIFIERS: Weeks of gestation: 39 weeks Qualified Code(s): Z3A.39 - 39 weeks gestation of COMMENT: NIPT- low risk. decline carrier and afp. NL anatomy GBS NEGATIVE (2) Supervision of other normal : COMMENT: PRR JACOB 10/17/20 surprise PC: Melissa Singh Spouse: Marcos (3) Family history of congenital anomaly: COMMENT: son melissa has unilateral renal agenesis (4) H/O oligohydramnios in prior , currently : COMMENT: growth us (5) Oligohydramnios: COMMENT: Less than 5 cm in office 10/14 plan induction of labor (6) Vaginal delivery: COMMENT: SM IOL oligo 39 boy [place] Maternal Data Information JACOB Calculator Estimated Delivery Date Method Current WG Current Estimate 10/17/20 LMP (Certain) 39w 5d Vaginal Delivery Operative Information Date of Procedure: 10/15/20 Pre-Operative Diagnosis: Induction of labor oligohydramnios Post-Operative Diagnosis: same Surgery / Procedure Performed: Spontaneous Vaginal Delivery Type of Anesthesia: Epidural Special Medications: none Estimated Blood Loss: 100 Fluids Replaced: crystalloid Findings Description of Procedure: Patient began pushing and delivered the head in the MIKE presentation. The head was delivered atraumatically . The anterior and posterior shoulders delivered without complication followed by the rest of the and the infant was placed on the maternal abdomen. Delayed cord clamping was employed for approximately 60 seconds. Cord was clamped and cut and gentle traction was applied to the cord and the placenta delivered spontaneously immediately following it was noted to be intact with three-vessel cord. The perineum and vagina were inspected and noted to have no laceration. EBL was 100 cc. Patient and tolerated delivery well. Presentation: MIKE Amniotic Membrane Rupture Type: Artificial Amniotic Fluid Description: Clear Placental Delivery Description: Spontaneous Placenta Disposition: [facility] Cord Vessel Description: 3 Vessels Cord Entanglement: - (Tight around left ankle) A Gender: Male Delayed Cord Clamping: Yes Post Vaginal Delivery Medications Given After Delivery: IV Pitocin Episiotomy Description: None Laceration: None Complication Complications: None Procedures Urinary/Genital [id number]: [id number] Vaginal Delivery global pk
--- NOTE | 2020-10-15 05:56 | PCM.DC ---
Discharge Instructions Diet Discharge Diet: No restrictions Activity Discharge Activity: Return to Normal Activity, May Not Drive (while taking narcotic pain medications.) and May Shower May resume sexual activity in: 4-6 weeks Dressing / Incision Call your doctor if your incision/area has: Continuous Slow Oozing, Sudden Increased Bleeding, Increased Pain/ Swelling, Increased Redness and Foul Smelling Discharge Follow Up Care Please Follow Up With: Zully Rhodes MD When: Call [phone] to make an appointment with your doctor in 6 weeks. If you had elevated blood pressure or 4th degree laceration, you will need to be seen in 2 weeks. Test Results: Test results from this visit will be discussed in further detail at your follow-up appointment, if applicable. Discharge Plan Admission Admit Date/Time: 10/14/20 08:33 Primary Reason for Your Visit: Vaginal delivery Attending Provider: Zully Rhodes Primary Care Provider: Elliott Mckinney Discharge Orders/Prescriptions Prescriptions: New naproxen 250 MG tablet 250 - 500 mg PO Q8H PRN PRN (Reason: MILD PAIN) Qty: 30 RF: 1 Continued [id number] 1 EACH capsule 1 ea PO DAILY RF: 0 Referrals / Follow Up: Elliott Mckinney MD [Primary Care Provider] - Disposition Disposition (needs filled in before D/C Order can be placed): Home, Self Care
--- NOTE | 2020-10-15 08:25 | NURSING ---
0820- rt legs still really numb from eidural and pt not able to move it yet, however is able to move lt leg without much difficulty. made aware of needing to call when ready to ambulate for the first time.
[2020-10-15] MEDS: Senna/Docusate Sodium 1 Tablet PO (08:32)
[2020-10-15] MEDS: 0.9% Saline Lock 10 ML Syringe IV (08:33)
[2020-10-16 00:26] VITALS: BP 105/59; PULSE 72; RESP 18
[2020-10-16] MEDS: Naproxen 500 MG Tablet PO (00:32)
[2020-10-16 04:19] VITALS: BP 109/67; PULSE 57; RESP 16
[2020-10-16 08:00] VITALS: BP 110/68; PULSE 62; RESP 16; TEMP 36.3; O2SAT 96
[2020-10-16] MEDS: Senna/Docusate Sodium 1 Tablet PO (08:03)
--- NOTE | 2020-10-16 09:46 | PCM.PN.OB ---
Subjective Subjective Patient doing well without complaints. Tolerating PO. Ambulating and voiding without difficulty. Breast feeding well. Denies chest pain, shortness of breath, calf pain/swelling, fevers, chills, lightheadedness. Objective Data Objective Data Vital Signs: Vital Signs Temp Pulse Resp BP Pulse Ox 97.3 F L 57 L 16 109/67 97 10/15/20 20:23 10/16/20 04:19 10/16/20 04:19 10/16/20 04:19 10/15/20 11:12 Oxygen Delivery Method Room Air Weight: 230 lb 6.129 oz Body Mass Index (BMI) 34.0 Intake & Output: Intake and Output for Last 24 Hours 10/14/20 10/15/20 10/16/20 23:59 23:59 23:59 Intake Total 2035.33 / 2035.33 1922.56 / 1922.56 Output Total 1225 / 1225 4800 / 4800 Balance 810.33 / 810.33 -2877.44 / -2877.44 Lab / Micro Data Result Diagrams: 10/14/20 08:50 Micro: Microbiology 10/14/20 10:55 Mucosa - Nose SARS-CoV-2 Antigen (Rapid) - Final ROS Constitutional Constitutional: Denies fever(s) Cardiovascular Cardiovascular: Denies chest pain, dyspnea or lightheadedness Gastrointestinal Gastrointestinal: Reports abdominal pain; Denies constipation or diarrhea Neurologic Neurologic: Denies dizziness or headache(s) Physical Exam Const alert, oriented x3, no apparent distress, average body habitus, healthy appearing and well nourished HEENT normocephalic Head and Scalp: atraumatic Eyes PERRL and EOMs intact bilaterally Neck full ROM Lymph Lymphatic: no lymphadenopathy noted Resp normal respiratory effort, no retractions and no use of accessory muscles Cardio regular rate GI soft to palpation, non-tender and non-distended Palpation: other Other Details: fundus firm Extremity normal to inspection and no clubbing, cyanosis or edema Skin no rashes or lesions noted Neuro no focal motor deficits and no sensory deficits noted Psych mental status grossly normal, affect normal and speech normal Assessment & Plan (1) Vaginal delivery: COMMENT: SM IOL oligo 39 boy [place] PLAN: s/p PPD # 1 1. routine post delivery care 2. breast feeding- support given 3. rh positive 4. rubella immune
[2020-10-16 10:29] VITALS: BP 110/68; PULSE 62; RESP 16; TEMP 36.3; O2SAT 96
== END 2020-10-16 11:15 | disposition home or self-care (01) | DRG 807 ==
PROVIDERS: Admitting Provider Obstetrics & Gynecology; PCP Family Medicine; Visit Provider Obstetrics & Gynecology
DX: O41.03X0 Oligohydramnios, third trimester, not applicable or unspecified (principal); Z37.0 Single live birth; O69.2XX0 Labor and delivery complicated by other cord entanglement, with compression, not applicable or unspecified; Z3A.39 39 weeks gestation of pregnancy; Z82.79 Family history of other congenital malformations, deformations and chromosomal abnormalities
CPT/HCPCS: 59025; 59050; 85025; 86850; 86900; 86901; 87426; 99218; J7120; A4216; G0378; J2405

== ENCOUNTER 2021-04-06 12:22 | Outpatient (CLI) | payer OTHER, SELFPAY | END 2021-04-06 23:59 | disposition short-term general hospital (02) | LOC: LABSPEC 12:23 | PROVIDERS: PCP Family Medicine; Visit Provider Physician Assistant | DX: U07.1 COVID-19 (principal) | CPT/HCPCS: 87635; U0003; U0005 ==

== ENCOUNTER → 2021-07-15 | Outpatient (CLI) | payer OTHER, SELFPAY ==
--- NOTE | 2021-07-15 08:09 | US_ITS ---
STUDY: ULTRASOUND OF THE FEMALE PELVIS - COMPLETE REASON FOR EXAM: Female, 31 years old. Check IUD placement. Abnormal uterine bleeding. LMP: Unknown. TECHNIQUE: Transabdominal and Transvaginal TECHNICAL QUALITY: Adequate. COMPARISON: None. FINDINGS: The uterus is anteverted and is in a midline position. The uterus measures 6.7 cm x 3.4 cm x 4.9 cm. Normal uterine cervix. The endometrium measures 4 mm in thickness, and is hyperechoic. There is no demonstrated endometrial mass. There is no demonstrated myometrial mass. I.U.D. - The patient does have an I.U.D. . The IUD is in good position. The right ovary is visualized. The right ovary measures 3.3 cm x 2.7 cm x 1.5 cm. There is no right ovarian cyst or ovarian mass. There is no visualized right adnexal mass or complex lesion. There is normal arterial and normal venous vascularity. The left ovary is visualized. The left ovary measures 2.6 cm x 2.5 cm x 1.5 cm. There is no left ovarian cyst or ovarian mass. There is no visualized left adnexal mass or complex lesion. There is normal arterial and normal venous vascularity. There is minimal fluid in the cul-de-sac. The pre void volume of the bladder was 701 ml. US/Pelvic (Non ) IMPRESSION: IUD is in good position. Minimal free fluid in the cul-de-sac. Electronically Signed: Addy Lin MD at 14:11 EDT ,
--- NOTE | 2021-07-15 08:09 | US_ITS ---
STUDY: ULTRASOUND OF THE FEMALE PELVIS - COMPLETE REASON FOR EXAM: Female, 31 years old. Check IUD placement. Abnormal uterine bleeding. LMP: Unknown. TECHNIQUE: Transabdominal and Transvaginal TECHNICAL QUALITY: Adequate. COMPARISON: None. FINDINGS: The uterus is anteverted and is in a midline position. The uterus measures 6.7 cm x 3.4 cm x 4.9 cm. Normal uterine cervix. The endometrium measures 4 mm in thickness, and is hyperechoic. There is no demonstrated endometrial mass. There is no demonstrated myometrial mass. I.U.D. - The patient does have an I.U.D. . The IUD is in good position. The right ovary is visualized. The right ovary measures 3.3 cm x 2.7 cm x 1.5 cm. There is no right ovarian cyst or ovarian mass. There is no visualized right adnexal mass or complex lesion. There is normal arterial and normal venous vascularity. The left ovary is visualized. The left ovary measures 2.6 cm x 2.5 cm x 1.5 cm. There is no left ovarian cyst or ovarian mass. There is no visualized left adnexal mass or complex lesion. There is normal arterial and normal venous vascularity. There is minimal fluid in the cul-de-sac. The pre void volume of the bladder was 701 ml. US/Transvaginal Non- IMPRESSION: IUD is in good position. Minimal free fluid in the cul-de-sac. Electronically Signed: Addy Lin MD at 14:11 EDT ,
== END | disposition home or self-care (01) ==
PROVIDERS: PCP Family Medicine; Visit Provider Obstetrics & Gynecology
DX: N93.9 Abnormal uterine and vaginal bleeding, unspecified (principal); Z30.431 Encounter for routine checking of intrauterine contraceptive device
CPT/HCPCS: 76830; 76856

== ENCOUNTER → 2021-09-02 | Outpatient (CLI) | payer OTHER, SELFPAY ==
--- NOTE | 2021-09-02 10:45 | US_ITS ---
STUDY: ULTRASOUND BREAST - LEFT REASON FOR EXAM: Female, 31 years old. Palpable mass, pain TECHNIQUE: Axial and longitudinal images of the LEFT breast were performed with a high resolution ultrasound transducer. # OF IMAGES: 40 COMPARISON: None. FINDINGS: LEFT Breast: Heterogeneous background echotexture. Multiple longitudinal and transverse ultrasound images of the medial left breast failed to demonstrate a discrete solid or cystic mass. There is some edema of the superficial soft tissues with some dilated ducts possibly consistent with mastoiditis. There is a 2 cm oval more hypoechoic area within the superficial subcutaneous fat felt to likely represent focal edematous tissue rather than true mass.: US/Breast Limited Unilateral IMPRESSION: Suspected mastitis without definite abscess but with a 2 cm hypoechoic area. Follow-up ultrasound is recommended after resolution of symptoms to document resolution to exclude true mass. ASSESSMENT CATEGORY: BIRADS Category 0: Incomplete. Need additional imaging evaluation. A letter regarding these results will be sent to the patient by the facility within 30 days. Electronically Signed: Jose Luis Price MD at 12:21 EDT ,
== END | disposition home or self-care (01) ==
LOC: OPUS 10:44
PROVIDERS: PCP Family Medicine; Visit Provider Obstetrics & Gynecology
DX: N63.20 Unspecified lump in the left breast, unspecified quadrant (principal); N61.0 Mastitis without abscess
CPT/HCPCS: 76642

== ENCOUNTER → 2021-09-20 | Outpatient (CLI) | payer OTHER, SELFPAY ==
--- NOTE | 2021-09-20 08:58 | US_ITS ---
STUDY: ULTRASOUND BREAST - LEFT REASON FOR EXAM: Female, 31 years old. Palpable lump left breast. TECHNIQUE: Axial and longitudinal images of the LEFT breast were performed with a high resolution ultrasound transducer. # OF IMAGES: 36 COMPARISON: Comparison is made with prior sonogram of the left breast dated 09/02/2021. FINDINGS: LEFT Breast: Adjacent to the nipple, there is a residual 1.6 cm by 1.4 cm x 0.4 cm abdomen this change just deep to the skin surface. This has improved as compared to prior study. Persistent dilated ducts. US/Breast Limited Unilateral IMPRESSION: Decreased size of the inflammatory region as described. Stable dilatation of the ducts. ASSESSMENT CATEGORY: BIRADS Category 2: Benign. A letter regarding these results will be sent to the patient by the facility within 30 days. Electronically Signed: Addy Lin MD at 10:48 EDT ,
== END | disposition home or self-care (01) ==
LOC: OPUS 08:56
PROVIDERS: PCP Family Medicine; Visit Provider Nurse Practitioner Family
DX: N63.24 Unspecified lump in the left breast, lower inner quadrant (principal)
CPT/HCPCS: 76642

== ENCOUNTER → 2021-12-20 | Outpatient (CLI) | payer OTHER, SELFPAY ==
--- NOTE | 2021-12-20 08:01 | CT_ITS ---
STUDY: CT ABDOMEN AND PELVIS WITH CONTRAST REASON FOR EXAM: Female, 31 years old. RLQ PAIN. Diarrhea. RADIATION DOSAGE (If Supplied By Facility): CTDIvol = ( 14.09 ) mGy, DLP = ( 937.42 ) mGycm TECHNIQUE: Transaxial images were obtained from the dome of the diaphragm to the symphysis pubis with oral contrast. Oral and amp; IV Readi-CAT and amp; 100mL Isovue-300 was administered. Sagittal and coronal images were reconstructed. Individualized dose optimization techniques were used for this CT. COMPARISON: None. FINDINGS: The visualized lung bases are unremarkable. The visualized portions of the heart are within normal limits. There is a 1.2 cm hypodense nodule in the inferior medial portion of the right lobe of liver. This most likely represent a small cyst or small hemangioma. Normal gallbladder and extrahepatic biliary system. Normal spleen. Normal pancreas. Normal bilateral adrenal glands. Normal right kidney. Normal left kidney. Normal visualized stomach. Normal small intestine. Moderate amount of fecal material is seen in the The appendix is visualized and appears normal. Normal abdominal aorta. Normal inferior vena cava. Normal retroperitoneum. Normal urinary bladder. There is a 2.6 cm Bard 2.2 cm cyst in the left ovary. There is a 2.8 cm x 2.5 cm cyst in the right ovary. Minimal amount of free fluid is seen in the cul-de-sac. Neither of these is seen within the uterus. There is a small umbilical hernia containing fat. Normal osseous structures. CT/Abdomen/Pelvis WITH Contrast IMPRESSION: Small bilateral ovarian cysts. IUD seen within the endometrium. Small amount of free fluid in the cul-de-sac. Electronically Signed: Addy Lin MD at 15:30 EDT ,
== END | disposition home or self-care (01) ==
LOC: CT 07:59
PROVIDERS: PCP Family Medicine; Referring Provider Obstetrics & Gynecology; Visit Provider Obstetrics & Gynecology
DX: R19.00 Intra-abdominal and pelvic swelling, mass and lump, unspecified site (principal); R10.31 Right lower quadrant pain
CPT/HCPCS: 74177; Q9967

== ENCOUNTER → 2022-12-19 | Outpatient (CLI) | payer OTHER, SELFPAY ==
[2022-12-22 15:08] LABS: HPV APTIMA, High Risk Negative (Negative)
== END | disposition home or self-care (01) ==
LOC: LABSPEC 14:14
PROVIDERS: PCP Family Medicine; Referring Provider Obstetrics & Gynecology; Visit Provider Obstetrics & Gynecology
DX: Z12.4 Encounter for screening for malignant neoplasm of cervix (principal)
CPT/HCPCS: 87624; 88175; G0145

== ENCOUNTER → 2023-01-31 | Outpatient (CLI) | payer OTHER, SELFPAY ==
[2023-01-31 07:31] LABS: Absolute Lymphocyte Count 1.74 X10^3/uL (0.83-4.51); Absolute Neutrophil Count 3.6 X10^3/uL (2.0-7.7); Basophil# 0.06 X10^3/uL; Eosinophil# 0.07 X10^3/uL; Eosinophils% 1.2 % (0-5); Hematocrit 44.7 % (37-47); Hemoglobin 14.8 g/dL (12.0-15.0); Lymphocyte # 1.74 X10^3/ul (0.83-4.51); Lymphocyte % 29.6 % (19-41); Mean Corp Hgb Conc 33.1 g/dL (32-36); Mean Corpuscular Hgb 31.7 pg (27.0-32.0); Mean Corpuscular Volume 95.7 fL (81-99); Mean Platelet Vol. 10.4 fl (6.2-12.0); Monocyte# 0.37 X10^3/uL; Monocyte% 6.3 % (0-10); NRBC Flagged by Analyzer 0 % (0-5); Neutrophil # 3.61 X10^3/uL (2.7-7.7); Neutrophil % 61.6 % (47-70); Platelet Count 230 K/mm3 (150-450); RBC Distribution Width CV 11.2 % (11.6-14.6); RBC Distribution Width SD 39.8 fl (35.1-43.9); Red Blood Count 4.67 M/mm3 (4.2-5.4); White Blood Count 5.9 K/mm3 (4.4-11.0)
[2023-01-31 08:12] LABS: ALB/GLOB Ratio 1.2 RATIO (0.9-2.4); AST(SGOT) 19 U/L (15-37); Alanine Aminotransfer ALT/SGPT 29 U/L (13-56); Albumin, Serum 3.8 g/dL (3.2-5.0); Alkaline Phosphatase 59 U/L (45-117); Anion Gap 3 (5-15); BUN 13 mg/dL (7-18); BUN/Creat Ratio 17.3 RATIO (10-20); Calcium,Total 8.6 mg/dL (8.5-10.1); Chloride 108 mmol/L (98-107); Cholesterol 172 mg/dL (200); Creatinine, Serum 0.75 mg/dL (0.55-1.02); EST Glomerular Filtration Rate 93 mL/min (>60); Est Glom Filt Rate - Afr Amer 113 mL/min (>60); Globulin 3.3 g/dL (2.2-4.2); Glucose 98 mg/dL (74-106); High Density Lipoprotein 59 mg/dL; Protein, Total 7.1 g/dL (6.4-8.2); Sodium Level 139 mmol/L (136-145); Thyroid Stim Hormone (TSH) 2.67 uIU/mL (0.358-3.74); Triglycerides 57 mg/dL; Very Low Density Lipoprotein 11 mg/dL (5-40)
[2023-01-31 08:41] LABS: Vitamin D,25 Hydroxy 45.8 ng/mL
== END | disposition home or self-care (01) ==
LOC: LAB 06:20
PROVIDERS: PCP Family Medicine; Referring Provider Obstetrics & Gynecology; Visit Provider Obstetrics & Gynecology
DX: Z13.1 Encounter for screening for diabetes mellitus (principal); Z13.220 Encounter for screening for lipoid disorders; Z13.0 Encounter for screening for diseases of the blood and blood-forming organs and certain disorders involving the immune mechanism; Z13.21 Encounter for screening for nutritional disorder; Z13.29 Encounter for screening for other suspected endocrine disorder
CPT/HCPCS: 36415; 80053; 80061; 82306; 83036; 84443; 85025

== ENCOUNTER 2023-04-06 13:30 | Outpatient (RCR) | payer OTHER, SELFPAY ==
--- NOTE | 2023-03-20 10:32 | HP.PTEVAL ---
Patient's Visit Information Visit Information Visit Information: SHA CLEARY is a 33 year old F referred to Physical Therapy by Dr. Jacek Paulson DO with a diagnosis of R hip pain. Date of Evaluation: 03/14/23 Physical Therapist: Jermaine Taveras DPT Visit Plan Frequency: 1x/Week Duration: 6 Weeks Plan: Start with R hip strengthening, focus on hip ER/IR, glute medius strengthening. HEP: BTB clamshells, SL hip abduction series Subjective Subjective: Pt. is here today for her initial evaluation with diagnosis of R hip pain. Pt. reports having increased R lateral hip pain ~8 weeks ago while running. It continued to bother her so she stopped running. Attempted again a few weeks ago and still there. Pt. has thus stopped running. She enjoys running as her form of exercise. Pt. denies N/T, no groin pain, no history of low back pain. Pt. had ACL reconstruction previously. Pt. has not tried any exercises for her hip pain currently. Pt. localizes her pain at her R lateral hip. No pain at rest, increases with running, walking and squatting. pt. is hopeful to reduce symptoms in order to get back to running without issues. Pain R hip: Pain Intensity (Out of 10): 0 Pain Intensity Range: 0 and 4 Objective Objective: POSTURE: Pt. has decent posture in stance, Normal iliac crest hieghts. PALPATION: Pt. has tenderness along her lateral hip and posterior greater trochanter. NEURO: normal throughout. ROM: Pt. has normal B hip ROM without increase in symptoms. Lumbar spine: ext min loss mild increase in LBP, no lateral hip pain. MMT: RLE: ankle 5/5 throughout; knee: ext 5/5, flexion 5/5; hip: flexion 4+/5, abd 4/5, ext 4+/5, IR 4/5, ER 4/5. LLE: ankle 5/5 throughout; knee: ext 5/5, flexion 5/5; hip: flexion 5/5, abd 5/5, ext 5/5, IR 4/5, ER 4/5. GAIT: Pt. has normal gait pattern noted SQUAT: Pt. has increased R lateral hip pain at bottom of of squat Balance/Special Test Scores Lower Extremity Functional Score: 57 Goals Goal 1:: LTG: Pt. to be I with HEP for LE strengthening. Goal Time Frame: 4-6 Weeks Goal 2:: LTG: Pt. to have increased R hip strength symmetrical to L side. Goal Time Frame: 4-6 Weeks Goal 3:: LTG: Pt. to be able to walk for 2-3 miles without increase in symptoms Goal Time Frame: 2-4 Weeks Goal 4:: LTG: Pt. to be able to run without increase in R hip pain allowing for increased recreational activity. Goal Time Frame: 4-6 Weeks Goal 5:: STG: Pt. to be able to squat without increase in symptoms. Rehabilitation Potential Physical Therapy Diagnosis: Pt. has signs and symptoms consistent with R hip pain. Pt. has some weakness with ER/IR motions and some with abduction. Pt. would benefit from PT to work on hip strengthening to increase stability with all of her recreational activities. Rehabilitation Potential: Excellent Anticipated Interventions Patient/Client Instruction: Educate patient on: Condition, Plan of Care, Risk Factors and Benefits of Fitness Program For the Purpose of:: To improve decision making, To facilitate caregiver knowledge, To improve self management, To prevent re-injury and To improve ability to perform tasks related to life management Therapeutic Exercise to Include: Strength training, Power training, Endurance training, Balance training, Coordination, Body mechanics and Flexibilty training For the Purpose of:: To decrease pain, To increase ROM, To improve nutrient delivery to tissue, To increase oxygenation perfusion, To improve muscle performance and motor function, To improve ability to perform ADL's and To increase tolerance to activity/condition/position Text: Thank you for the opportunity to evaluate your patient. For Medicare and Medicare HMO plans, please review the plan of care and approve it. It will need to be FAXED BACK to us at [phone] for Medicare purposes. For Medicare only, by signing this I certify the plan of care. Please let me know if there are questions or concerns regarding this plan of care. Physician Signature: Date:
--- NOTE | 2023-04-11 17:38 | HP.PTREVAL ---
Re-Evaluation Intro: Dr. Jacek Paulson, DO, It has been my pleasure to treat SHA CLEARY over the last 5 visits for R hip pain. Please see the progress note below for an update on the physical therapy plan of care! Subjective Subjective: Pt reports HEP has been going well and has not had much pain. Attempted some running and did have some discomfort. Objective Objective/Function: MMT: global cherrie hip strength 4-/5, hip ABD difficult ROM: WNL, some tightness in R TFL, QL and ITB GAIT: normal pattern PALPATION: tenderness with R QL, sup iliac crest, R SI joint with spring, R TFL SQUAT: some pain with repeated squatting, 2/10 pain but goes away with rest Added HEP: modified side planks, forearm planks with hip ABD, LTR, prone frog stretch, SL bridge, hip hikes Discussed with pt some incontinence issues with running following pregnancies, addressed with stretches and pt will return with new script from OB. Pt has noticed an improvement with performing exercises at home and was agreeable to include some of the new exercises, a good combo of static and dynamic ex daily with daily stretches to help relax pelvic floor. Still hesitant to walk and run for prolonged periods of time d/t pain and some discomfort in back, a noticeable difference in strength between R and L (R weaker). Plan Plan Plan: Pt discharged from PT for hip/back pain. Will return with script for UI dysfunction. Balance/Gait/Functional tests Balance/Special Test Scores Lower Extremity Functional Score: 57 Goals Goals Goal 1:: LTG: Pt. to be I with HEP for LE strengthening. Goal Time Frame: 4-6 Weeks Goal Progress: Goal Met Goal 2:: LTG: Pt. to have increased R hip strength symmetrical to L side. Goal Time Frame: 4-6 Weeks Goal Progress: Progressing Goal 3:: LTG: Pt. to be able to walk for 2-3 miles without increase in symptoms Goal Time Frame: 2-4 Weeks Goal Progress: Progressing Goal 4:: LTG: Pt. to be able to run without increase in R hip pain allowing for increased recreational activity. Goal Time Frame: 4-6 Weeks Goal Progress: Progressing Goal 5:: STG: Pt. to be able to squat without increase in symptoms. Goal Progress: Progressing Anticipated Interventions Anticipated Interventions Patient/Client Instruction: Educate patient on: Condition, Plan of Care, Risk Factors and Benefits of Fitness Program For the Purpose of:: To improve decision making, To facilitate caregiver knowledge, To improve self management, To prevent re-injury and To improve ability to perform tasks related to life management Therapeutic Exercise to Include: Strength training, Power training, Endurance training, Balance training, Coordination, Body mechanics and Flexibilty training For the Purpose of:: To decrease pain, To increase ROM, To improve nutrient delivery to tissue, To increase oxygenation perfusion, To improve muscle performance and motor function, To improve ability to perform ADL's and To increase tolerance to activity/condition/position Re-Evaluation Ending Re-evaluation ending: Please do not hesitate to contact me at [phone] by phone or if you have questions or concerns regarding this new plan of care! Sincerely, Jermaine Taveras DPT
--- NOTE | 2023-04-12 08:25 | HP.PTDCSUM ---
Discharge Summary D/C summary: It has been my pleasure to treat SHA CLEARY referred by Dr. Jacek Paulson DO, with the diagnosis of R hip pain for a total of 5 visit(s). Discharge Date: 04/11/23 Please see the following information for a summary of their discharge status. Subjective Subjective: Pt reports HEP has been going well and has not had much pain. Attempted some running and did have some discomfort. Pain R hip: Pain Intensity (Out of 10): 0 Overall Improvement % Improvement: 80 Objective Objective/Function: MMT: global cherrie hip strength 4-/5, hip ABD difficult ROM: WNL, some tightness in R TFL, QL and ITB GAIT: normal pattern PALPATION: tenderness with R QL, sup iliac crest, R SI joint with spring, R TFL SQUAT: some pain with repeated squatting, 2/10 pain but goes away with rest Added HEP: modified side planks, forearm planks with hip ABD, LTR, prone frog stretch, SL bridge, hip hikes Discussed with pt some incontinence issues with running following pregnancies, addressed with stretches and pt will return with new script from OB. Pt has noticed an improvement with performing exercises at home and was agreeable to include some of the new exercises, a good combo of static and dynamic ex daily with daily stretches to help relax pelvic floor. Still hesitant to walk and run for prolonged periods of time d/t pain and some discomfort in back, a noticeable difference in strength between R and L (R weaker). Goals Goal 1:: LTG: Pt. to be I with HEP for LE strengthening. Goal Progress: Goal Met Goal 2:: LTG: Pt. to have increased R hip strength symmetrical to L side. Goal Progress: Progressing Goal 3:: LTG: Pt. to be able to walk for 2-3 miles without increase in symptoms Goal Progress: Progressing Goal 4:: LTG: Pt. to be able to run without increase in R hip pain allowing for increased recreational activity. Goal Progress: Progressing Goal 5:: STG: Pt. to be able to squat without increase in symptoms. Goal Progress: Progressing Plan Plan: Pt discharged from PT for hip/back pain. Will return with script for UI dysfunction. D/C Information Discharge Comments: Pt. will be DC from PT at this point in time. Pt. is I with HEP and is doing well. Pt. did have questions about UI, I deferred to DEVELOPMENT ADMINISTRATOR with possible script for PT. d/c sentence: If there are questions or concerns regarding this patient's physical therapy, please feel free to call me at [phone]. Thank you for the referral of this patient. Sincerely, Jermaine Taveras, DPT Balance/Gait/Functional tests Balance/Special Test Scores Lower Extremity Functional Score: 57 Improvement % Improvement: 80
== END 2023-04-06 19:00 | disposition home or self-care (01) ==
LOC: PT 13:30
PROVIDERS: PCP Family Medicine; Visit Provider Orthopaedic Surgery
DX: M25.551 Pain in right hip (principal)
CPT/HCPCS: 97110; 97161

== ENCOUNTER → 2023-05-16 | Outpatient (CLI) | payer OTHER, SELFPAY ==
--- NOTE | 2023-05-16 09:46 | ECHOD_ITS ---
Reason For Study: CARDIAC FAMILY HISTORY Procedure This was a 2D Doppler, Color Flow transthoracic echocardiogram. Exam performed in department. Left Ventricle Normal size and thickness. The left ventricular ejection fraction is 65 %. Normal diastololic function. Right Ventricle Normal right ventricle. Atria The left and right atria are normal. Mitral Valve Trivial mitral valve insufficiency. Tricuspid Valve Trivial tricuspid valve insufficiency. Unable to estimate RV systolic pressure due to insufficient tricuspid regurgitant envelope. Aortic Valve Trisinus/trileaflet aortic valve. Pulmonic Valve The pulmonic valve is not well visualized. Trivial pulmonic valve insufficiency. Great Vessels Normal sized aortic root. Pericardium/Pleural No pericardial effusion. MMode/2D Measurements & Calculations LVIDd: 4.7 cm IVSd: 0.75 cm LVOT diam: 1.9 cm LVIDs: 3.2 cm LVPWd: 0.67 cm LVOT area: 2.8 cm2 RVDd: 3.6 cm FS: 31.8 % Ao root diam: 2.9 cm LAV(MOD-bp): 40.5 ml LVAd ap4: 32.8 cm2 LAV(MOD-bp) Indexed: 19.8 ml/m2 LVLd ap4: 8.0 cm LAV(MOD-sp2): 50.3 ml EDV(MOD-sp4): 110.0 ml LAV(MOD-sp4): 32.3 ml EDV(sp4-el): 113.7 ml LVAs ap4: 17.8 cm2 LVLs ap4: 6.5 cm ESV(MOD-sp4): 41.0 ml ESV(sp4-el): 41.8 ml EF(MOD-sp4): 62.8 % EF(sp4-el): 63.2 % LVAd ap2: 35.7 cm2 SV(MOD-sp4): 69.0 ml SV(MOD-sp2): 84.5 ml LVLd ap2: 8.5 cm EDV(MOD-sp2): 124.0 ml EDV(sp2-el): 126.5 ml LVAs ap2: 16.9 cm2 LVLs ap2: 6.2 cm ESV(MOD-sp2): 39.5 ml ESV(sp2-el): 39.5 ml EF(MOD-sp2): 68.2 % SV(sp4-el): 71.9 ml LA dimension(2D): 3.4 cm LA A4 area: 15.5 cm2 RA A4 area: 17.1 cm2 TAPSE: 2.6 cm Time Measurements MV dec time: 0.21 sec Doppler Measurements & Calculations MV E max phill: 81.2 cm/sec Lat Peak E' Phill: 19.4 cm/sec Med Peak E' Phill: 15.0 cm/sec MV A max phill: 50.1 cm/sec E/E' lat: 4.2 E/E' med: 5.4 MV E/A: 1.6 Ao V2 max: 119.1 cm/sec LV V1 max: 104.7 cm/sec MV dec slope: 389.1 cm/sec2 Ao max P.7 mmHg LV V1 max P.4 mmHg Ao V2 mean: 85.5 cm/sec LV V1 mean P.5 mmHg Ao mean P.3 mmHg LV V1 mean: 75.8 cm/sec Ao V2 VTI: 31.5 cm LV V1 VTI: 24.2 cm AV (velocity ratio): 0.77 DANIKA(I,D): 2.1 cm2 DANIKA(V,D): 2.4 cm2 SV(LVOT): 67.0 ml PA V2 max: 85.9 cm/sec PA max PG (full): 0.31 mmHg ECHO/Echo Complete Interpretation Summary The left ventricular ejection fraction is 65 %. Incidental finding of hepatic cyst noted. Consider ultrasound liver for further evaluation. Ordering Physician: Sapphire Rodriguez Referring Physician: Elliott Mckinney Performed By: Monika Noriega RDCS
--- OUTSIDE RECORDS SUMMARY | 2023-05-16 10:05 | XMS RPT_ITS | CCD ---
Author Name Unknown Address [address] [place] [address] Organization [facility] Care Team Providers Care Director Part Name Role Phone Zully Rhodes MD Unavailable [phone] Pam PÉREZ, Estefani Perez Unavailable [phone] KRYSTLE JOHNSTON Unavailable Unavailable CHRISTOPHER, KARCARRINGTON Unavailable Unavailable CHRISTOPHER, KARCARRINGTON Unavailable Unavailable CHRISTOPHER, STEVE Unavailable Unavailable STEVE WHITE Unavailable Unavailable STEVE WHITE Unavailable Unavailable TK ALFREDO Unavailable Unavailable STEVE WHITE Unavailable Unavailable Pam PÉREZ, Estefani Perez Unavailable [phone] Zully Rhodes MD Unavailable [phone] Allergies Allergy Classification Reported Allergen(s) Allergy Type Date of Onset Reaction(s) Facility (15 sources) penicillin v drug allergy 7 [facility] (1 source) Penicillins; Translations: [PENICILLINS] Propensity to adverse reactions to drug (disorder) 7 [facility] Repository Medications Completed/Discontinued Medications Medication Drug Class(es) Dates Sig (Normalized) Sig (Original) VIT-FE FUMARATE-FA (4 sources) Start: 10-16-2016 VITAMINS 28-0.8 MG TABS VIT-FE FUMARATE-FA [id number] Estefani Orozco MANAGER REIMBURSEMENT Problems Active Problems Problem Classification Problem Date Documented Da te Episodic/Chronic Residual codes; unclassified (1 source) 25 weeks gestation of ; Translations: [25 weeks gestation of ] Onset: 10-16-2016 12-15-2016 Unclassified (1 source) Unknown / UNK(Unknown) Onset: 09-15-2016 Past or Other Problems Problem Classification Problem Date Documented Da te Episodic/Chronic Other and delivery including normal (20 sources) Primigravida; Translations: [Gestation period, 21 weeks] Onset: 09-15-2016 11-16-2016 Episodic Unclassified (4 sources) Gestation period, 30 weeks; Translations: [30 weeks gestation of ] Onset: 10-16-2016 01-16-2017 Episodic Unclassified (1 source) Encounter for screening of mother; Translations: [Encounter for screening of mother] Onset: 09-15-2016 Episodic Results Test Name Value Interpretation Reference Range Facil ity Vital Signs Date Time Vital Sign Value Performing Clinician Ta cardenas 02-05-2017 09:54-0500 BMI (Body Mass Index) 32.99 kg/m2 Zully Rhodes MD [facility] 02-05-2017 09:54-0500 BP Diastolic 79 mm[Hg] Zully Rhodes MD [facility] 02-05-2017 09:54-0500 BP Systolic 124 mm[Hg] Zully Rhodes MD [facility] 02-05-2017 09:54-0500 Weight 98.43 kg Zully Rhodes MD [facility] 01-16-2017 08:20-0500 BMI (Body Mass Index) 31.9 kg/m2 Estefani Orozco NP [facility] 01-16-2017 08:20-0500 Body Temperature 97.8 [degF] Estefani Orozco [facility] 01-16-2017 08:20-0500 BP Diastolic 72 mm[Hg] Estefani Orozco NP [facility] 01-16-2017 08:20-0500 BP Systolic 112 mm[Hg] Estefani Orozco NP [facility] 01-16-2017 08:20-0500 Pulse (Heart Rate) 70 /min Estefani Orozco NP [facility] 01-16-2017 08:20-0500 Respiratory Rate 16 /min Estefani Orozco NP [facility] 01-16-2017 08:20-0500 Weight 95.17 kg Estefani Orozco NP [facility] 01-01-2017 08:25-0400 BMI (Body Mass Index) 31.84 kg/m2 Estefanicamden Chriss MANAGER REIMBURSEMENT [facility] 01-01-2017 08:25-0400 Body Temperature 97.3 [degF] Estefanicamden Chriss MANAGER REIMBURSEMENT [facility] 01-01-2017 08:25-0400 BP Diastolic 73 mm[Hg] Estefani Westover MANAGER REIMBURSEMENT [facility] 01-01-2017 08:25-0400 BP Systolic 111 mm[Hg] Estefani Pam MANAGER REIMBURSEMENT [facility] 01-01-2017 08:25-0400 Pulse (Heart Rate) 87 /min Estefani Westover MANAGER REIMBURSEMENT [facility] 01-01-2017 08:25-0400 Respiratory Rate 16 /min Estefani Pam MANAGER REIMBURSEMENT [facility] 01-01-2017 08:25-0400 Weight 94.98 kg Estefanicamden Chriss MANAGER REIMBURSEMENT [facility] 12-15-2016 08:42-0400 BMI (Body Mass Index) 30.71 kg/m2 Zully Rhodes MD [facility] 12-15-2016 08:42-0400 BP Diastolic 76 mm[Hg] Zully Rhodes MD [facility] 12-15-2016 08:42-0400 BP Systolic 116 mm[Hg] Zully Rhodes MD [facility] 12-15-2016 08:42-0400 Height 172.72 cm Zully Rhodes MD [facility] 12-15-2016 08:42-0400 Pulse (Heart Rate) 68 /min Zully Rhodes MD [facility] 12-15-2016 08:42-0400 Weight 91.63 kg Zully Rhodes MD [facility] 11-16-2016 14:30-0400 BMI (Body Mass Index) 30.47 kg/m2 Zully Rhodes MD [facility] 11-16-2016 14:30-0400 Body Temperature 97.7 [degF] Zully Rhodes MD [facility] 11-16-2016 14:30-0400 BP Diastolic 71 mm[Hg] Zully Rhodes MD [facility] 11-16-2016 14:30-0400 BP Systolic 120 mm[Hg] Zully Rhodes MD [facility] 11-16-2016 14:30-0400 Pulse (Heart Rate) 67 /min Zully Rhodes MD [facility] 11-16-2016 14:30-0400 Respiratory Rate 16 /min Zully Rhodes MD [facility] 11-16-2016 14:30-0400 Weight 90.9 kg Zully Rhodes MD [facility] 10-16-2016 11:05-0400 BMI (Body Mass Index) 29.07 kg/m2 Estefani Orozco NP [facility] 10-16-2016 11:05-0400 Body Temperature 98.1 [degF] Estefani Orozco MANAGER REIMBURSEMENT [facility] 10-16-2016 11:05-0400 BP Diastolic 71 mm[Hg] Estefani Orozco MANAGER REIMBURSEMENT [facility] 10-16-2016 11:05-0400 BP Systolic 112 mm[Hg] Estefani Orozco MANAGER REIMBURSEMENT [facility] 10-16-2016 11:05-0400 Height 172.72 cm Estefani Orozco MANAGER REIMBURSEMENT [facility] 10-16-2016 11:05-0400 Pulse (Heart Rate) 67 /min Estefani Orozco MANAGER REIMBURSEMENT [facility] 10-16-2016 11:05-0400 Respiratory Rate 16 /min Estefani Orozco MANAGER REIMBURSEMENT [facility] 10-16-2016 11:05-0400 Weight 86.73 kg Estefani Orozco MANAGER REIMBURSEMENT [facility] Encounters Encounter Date Encounter Type Care Provider Facility Start: 10-16-2016 Ambulatory STEVE WHITE [facility] Start: 10-09-2016 End: 04-16-2017 Ambulatory TK ALFREDO [facility] [place] Start: 09-15-2016 End: 04-16-2017 Ambulatory STEVE WHITE [facility] Start: 09-15-2016 End: 09-19-2016 Ambulatory KRYSTLE JOHNSTON [facility] [place] Procedures Date Procedure Procedure Detail Performing Clinician Start: 02-05-2017 End: 02-05-2017 Routine OB Visit (Global) Zully garland MD Work Phone: Start: 02-05-2017 End: 02-05-2017 Routine OB Visit (Global) Zully garland MD Work Phone: Start: 01-16-2017 End: 01-16-2017 Routine OB Visit (Global) Estefani Perez Tonya gs MANAGER REIMBURSEMENT Work Phone: Start: 01-16-2017 End: 01-16-2017 Routine OB Visit (Global) Estefani S Tonya gs MANAGER REIMBURSEMENT Work Phone: Start: 01-01-2017 End: 01-01-2017 Routine OB Visit (Global) Zully garland MD Work Phone: Start: 01-01-2017 End: 01-01-2017 Routine OB Visit (Global) Zully garland MD Work Phone: Start: 12-15-2016 End: 01-01-2017 *CBC with Differential Zully montero MD Work Phone: Start: 12-15-2016 End: 01-01-2017 Glucose [Mass/volume] in Serum or Plasma --1 hour post 50 g glucose PO Zully Rhodes MD Work Phone: Start: 12-15-2016 End: 12-15-2016 Routine OB Visit (Global) Zully garland MD Work Phone: Start: 12-15-2016 End: 01-01-2017 *CBC with Differential Zully montero MD Work Phone: Start: 12-15-2016 End: 01-01-2017 GTT (glucose after 1hr PO glucose) Zully Rhodes MD Work Phone: Start: 12-15-2016 End: 12-15-2016 Routine OB Visit (Global) Zully garland MD Work Phone: Start: 11-16-2016 End: 11-16-2016 Routine OB Visit (Global) Zully garland MD Work Phone: Start: 11-16-2016 End: 11-16-2016 Routine OB Visit (Global) Zully garland MD Work Phone: Start: 10-16-2016 End: 10-16-2016 Antepartum care only 7/> visits Estefani Orozco MANAGER REIMBURSEMENT Work Phone: Start: 10-16-2016 End: 10-16-2016 Antepartum care only Estefani Orozco MANAGER REIMBURSEMENT Work Phone: Start: 10-16-2016 End: 02-27-2017 Ob us >/= 14 wks, sngl fetus Estefani Orozco MANAGER REIMBURSEMENT Work Phone: Plan of Treatment Date Care Activity Detail Author Start: 02-19-2017 End: 02-19-2017 Appointment Appointment [facility] Start: 02-05-2017 End: 02-05-2017 Appointment Appointment [facility] Start: 01-16-2017 End: 01-16-2017 Appointment Appointment [facility] Start: 01-01-2017 End: 01-01-2017 Appointment Appointment [facility] Start: 12-15-2016 End: 01-01-2017 *CBC with Differential *CBC with Differential [facility] Start: 12-15-2016 End: 01-01-2017 GTT (glucose after 1hr PO glucose) *Glucose, Post Glucose Dose [facility] Start: 12-15-2016 End: 12-15-2016 Appointment Appointment [facility] Start: 12-15-2016 End: 01-01-2017 *CBC with Differential *CBC with Differential [facility] Start: 12-15-2016 End: 01-01-2017 GTT (glucose after 1hr PO glucose) *Glucose, Post Glucose Dose [facility] Start: 11-16-2016 End: 11-16-2016 Appointment Appointment [facility] Start: 10-16-2016 End: 10-16-2016 Us preg uterus after 1st trimest 1/ gestation US OB, >14 weeks [facility] Start: 10-16-2016 End: 10-16-2016 Appointment Appointment [facility] Start: 10-16-2016 End: 02-27-2017 Ob us >/= 14 wks, sngl fetus US OB, >14 weeks [facility] Summary Purpose Family History No Family History Records FoundNo Family History Records Found Advance Directives No Advanced Directives Records FoundNo Advanced Directives Records Found Additional Source Comments INFORMATION SOURCE (unrecogn ized section and content) DATE CREATED AUTHOR AUTHOR'S SHIRA FRANKEL 06/06/2021 [facility] FOR RECORDS PERTAINING TO PATIENTS WHO ARE OR HAVE BEEN ENROLLED IN A CHEMICAL DEPENDENCY/SUBSTANCEABUSE PROGRAM, SOME INFORMATION MAY BE OMITTED. This clinical summary was aggregated from multiple sources. Caution should be exercised in using it in the provision of clinical care. This summary normalizes information from multiple sources, and as a consequence, information in this document may materially change the coding, format and clinical context of patient data. In addition, data may be omitted in some cases. CLINICAL DECISIONS SHOULD BE BASED ON THE PRIMARY CLINICAL RECORDS. [facility] [employer], [facility]. provides no warranty or guarantee of the accuracy or completeness of information in this document.
== END | disposition home or self-care (01) ==
LOC: CVS 09:44
PROVIDERS: PCP Family Medicine; Referring Provider Nurse Practitioner Family; Visit Provider Nurse Practitioner Family
DX: I08.1 Rheumatic disorders of both mitral and tricuspid valves (principal); R09.89 Other specified symptoms and signs involving the circulatory and respiratory systems; Z82.49 Family history of ischemic heart disease and other diseases of the circulatory system
CPT/HCPCS: 93306

== ENCOUNTER 2023-11-21 09:30 | Outpatient (RCR) | payer OTHER, SELFPAY | END 2023-11-21 19:00 | disposition home or self-care (01) | LOC: PT 09:30 | PROVIDERS: PCP Family Medicine; Referring Provider Physician Assistant; Visit Provider Physician Assistant | DX: S73.191D Other sprain of right hip, subsequent encounter (principal); M25.551 Pain in right hip | CPT/HCPCS: 97110; 97161; 97530 ==

== ENCOUNTER 2024-04-14 12:04 | Outpatient (RCR) | payer OTHER, SELFPAY | END 2024-04-14 19:00 | disposition home or self-care (01) | LOC: PT 12:04 | PROVIDERS: PCP Family Medicine; Referring Provider Orthopaedic Surgery Sports Medicine; Visit Provider Orthopaedic Surgery Sports Medicine | DX: S76.011D Strain of muscle, fascia and tendon of right hip, subsequent encounter (principal) ==

== ENCOUNTER → 2024-04-30 | Outpatient (CLI) | payer OTHER, SELFPAY ==
--- NOTE | 2024-04-30 07:37 | US_ITS ---
PROCEDURE: ULTRASOUND ABDOMEN LIMITED REASON FOR EXAM: Liver cysts seen on previous CT. COMPARISON: CT abdomen dated 12/20/2021. FINDINGS: Liver: 14.4 cm sagittally. Normal echogenicity. Homogeneous texture. Hyperechoic nodule, right hepatic lobe, measuring 1.15 x 0.92 x 1.24 cm. Gallbladder: No stones, sludge, wall thickening or tenderness. Common bile duct: Normal measuring 0.44 cm.. Pancreas: Visualized portions are sonographically unremarkable. Blood flow: Hepatopetal. Visualized portions of the right kidney are unremarkable. No right upper quadrant ascites. 11.7 x 6.2 x 3.6 cm. Renal cortex measures 1.2 cm. US/Abdomen Limited IMPRESSION: Hyperechoic nodule in the right hepatic lobe consistent with hemangioma. Reading Location: [facility]
[2024-04-30 08:29] LABS: Absolute Lymphocyte Count 1.39 X10^3/uL (0.83-4.51); Absolute Neutrophil Count 3.1 X10^3/uL (2.0-7.7); Basophil# 0.06 X10^3/uL; Basophil% 1.2 % (0-1); Eosinophil# 0.07 X10^3/uL; Eosinophils% 1.4 % (0-5); Hematocrit 42.2 % (37-47); Hemoglobin 14.2 g/dL (12.0-15.0); Lymphocyte # 1.39 X10^3/ul (0.83-4.51); Lymphocyte % 28.1 % (19-41); Mean Corp Hgb Conc 33.6 g/dL (32-36); Mean Corpuscular Hgb 31.8 pg (27.0-32.0); Mean Corpuscular Volume 94.4 fL (81-99); Monocyte# 0.29 X10^3/uL; Monocyte% 5.9 % (0-10); NRBC Flagged by Analyzer 0 % (0-5); Neutrophil # 3.12 X10^3/uL (2.7-7.7); Neutrophil % 63.2 % (47-70); Platelet Count 222 K/mm3 (150-450); RBC Distribution Width CV 11.4 % (11.6-14.6); RBC Distribution Width SD 39.8 fl (35.1-43.9); Red Blood Count 4.47 M/mm3 (4.2-5.4); White Blood Count 4.9 K/mm3 (4.4-11.0)
== END | disposition home or self-care (01) ==
PROVIDERS: PCP Family Medicine; Referring Provider Nurse Practitioner Family; Visit Provider Nurse Practitioner Family
DX: R19.5 Other fecal abnormalities (principal); K76.89 Other specified diseases of liver
CPT/HCPCS: 36415; 76705; 85025